=== PATIENT | female | born 1965 | race Caucasian/White ===

== ENCOUNTER 2020-07-10 08:46 | Emergency (ER) | payer OTHER ==
[~2020-07-10 08:46] MED LIST: HYDROCODON-ACE1 EAC4 PO; NAPROXEN500 MG PO
[2020-07-10 09:40] LABS: BASOPHIL 0.8 % (0-2); EOSINOPHIL 1.3 % (0-5); HCT 40.5 % (37.0-47.0); HGB 13.5 g/dl (12.5-16.0); LYMPHOCYTE 18.4 % (15-48); MCH 32.1 pg (25.0-31.0); MCHC 33.3 g/dL (32.0-36.0); MCV 96.2 fL (78.0-100.0); MONOCYTE 6.1 % (0-12); MPV 10.6 fL (6.0-9.5); NRBC 0; PLT 325 K/uL (150-400); RBC 4.21 M/uL (4.20-5.40); WBC 7.8 K/uL (4.0-10.5)
[2020-07-10 09:43] LABS: ALBUMIN 3.4 g/dL (3.4-5.0); BILIRUBIN - TOTAL 0.5 mg/dL (0.2-1.0); BUN/CREAT RATIO (CALC) 8.4 RATIO; CREATININE 0.95 mg/dL (0.51-0.95); GLOBULIN (CALCULATION) 2.6 g/dL; POTASSIUM 4.4 mmol/L (3.5-5.1)
[2020-08-29] MEDS ORDERED: PANTOPRAZOLE SO40 MG PO (14:57)
[2020-09-06] MEDS ORDERED: COLESTID 1GM TAB1 GM PO (09:24)
== END 2020-07-10 11:09 | disposition home or self-care (01) ==
LOC: FER 08:46
PROVIDERS: Emergency Medicine
DX: R07.89 Other chest pain (principal); F17.200 Nicotine dependence, unspecified, uncomplicated
CPT/HCPCS: 36415; 71046; 80053; 84484; 85025; 93005

== ENCOUNTER → 2020-09-06 | Day surgery (SDC) | payer OTHER ==
[~2020-09-06] VITALS: Ht 162.6 cm; Wt 53.7 kg
[~2020-09-06] MED LIST changes: +COLESTID 1GM TAB1 GM PO; +PANTOPRAZOLE SO40 MG PO
== END | disposition home or self-care (01) ==
LOC: FAS 07:46
DX: K29.50 Unspecified chronic gastritis without bleeding (principal); K21.9 Gastro-esophageal reflux disease without esophagitis; Z98.51 Tubal ligation status; F17.200 Nicotine dependence, unspecified, uncomplicated; F41.9 Anxiety disorder, unspecified; F32.9 Major depressive disorder, single episode, unspecified; K44.9 Diaphragmatic hernia without obstruction or gangrene
CPT/HCPCS: J2704; J7120

== ENCOUNTER 2021-02-09 23:10 | Emergency (ER) | payer SELFPAY ==
[2021-02-10 01:44] LABS: BASOPHIL 0.4 % (0-2); EOSINOPHIL 0 % (0-5); HGB 14.1 g/dl (12.5-16.0); MCH 30.7 pg (25.0-31.0); MCHC 32.8 g/dL (32.0-36.0); MCV 93.5 fL (78.0-100.0); MONOCYTE 5.6 % (0-12); MPV 9.8 fL (6.0-9.5); NEUTROPHIL 85.6 % (41-80); NRBC 0; PLT 452 K/uL (150-400); RDW 11.9 % (11.5-14.0); WBC 13.5 K/uL (4.0-10.5)
[2021-02-10 02:09] LABS: BILIRUBIN - TOTAL 1.4 mg/dL (0.2-1.0); BUN/CREAT RATIO (CALC) 16.9 RATIO; CREATININE 0.83 mg/dL (0.51-0.95); GLOBULIN (CALCULATION) 2.9 g/dL; POTASSIUM 3.9 mmol/L (3.5-5.1); TOTAL PROTEIN 6.9 g/dL (6.4-8.2)
[2021-02-10 02:21] LABS: LACTIC ACID 1.2 mmol/L (0.4-1.9)
[2021-02-10] MEDS ORDERED: ONDANSETRON ODT4 MG SL (04:14)
[2021-02-10 04:20] LABS: HCT 40.8 % (37.0-47.0); HGB 13.2 g/dL (12.5-16.0)
[2021-02-10 05:04] LABS: BILIRUBIN NEGATIVE (NEGATIVE); BLOOD NEGATIVE Ery/uL (NEGATIVE); CLARITY CLEAR (CLEAR); COLOR YELLOW (YELLOW); GLUCOSE (U) NORMAL (NORMAL); LEUKOCYTES NEGATIVE Leu/uL (NEGATIVE); NITRITE NEGATIVE (NEGATIVE); PROTEIN NEGATIVE (NEGATIVE); SPECIFIC GRAVITY <=1.005 (1.001-1.030); UROBILINOGEN 0.2 mg/dL (0.2-1.0)
== END 2021-02-10 04:30 | disposition home or self-care (01) ==
LOC: FER 23:10
PROVIDERS: Emergency Medicine Emergency Medical Services
DX: R10.12 Left upper quadrant pain (principal); R10.32 Left lower quadrant pain; R11.2 Nausea with vomiting, unspecified; F17.210 Nicotine dependence, cigarettes, uncomplicated
CPT/HCPCS: 36415; 80053; 81003; 83605; 83690; 84145; 85014; 85018; 85025; 85379; J1170; J1885; J2405; J7030